=== PATIENT | male | born 1970 | race Caucasian/White ===

== ENCOUNTER 2020-12-18 17:22 | Emergency (ER) | payer MEDICAID ==
[~2020-12-18] VITALS: Ht 167.6 cm; Wt 63.5 kg
[2020-12-18 17:31] VITALS: Ht 167.6 cm; Wt 63.5 kg
[2020-12-18] MEDS ORDERED: MOT800 PO (19:16)
[2020-12-18] MEDS ORDERED: AUGMENTIN 875-1 EACH PO (19:16)
[2020-12-18] MEDS ORDERED: [UNRECOGNIZED DRUG - OTHER] TOP (19:16)
[2020-12-18 22:21] VITALS: BP 138/91
== END 2020-12-18 22:21 | disposition home or self-care (01) ==
LOC: ED 17:22
DX: S31.23XA Puncture wound without foreign body of penis, initial encounter (principal); W54.0XXA Bitten by dog, initial encounter; Y93.89 Activity, other specified; Y92.89 Other specified places as the place of occurrence of the external cause; Y99.8 Other external cause status
CPT/HCPCS: 90715; J0295; J1885